=== PATIENT | female | born 1980 | race Caucasian/White ===

== ENCOUNTER → 2018-02-07 | Outpatient (CLI) | payer OTHER ==
[~2018-02-07] MED LIST: DOCU-416 PO; ENOX80DI8 SQ; INSU100C14 SQ
== END ==
LOC: LAB 11:37
PROVIDERS: ATTEND Pediatrics
DX: O92.79 Other disorders of lactation (principal); B37.89 Other sites of candidiasis
CPT/HCPCS: 87071

== ENCOUNTER → 2018-09-09 | Outpatient (CLI) | payer OTHER ==
--- NOTE | 2018-09-09 16:33 | RADIOLOGY IMAGING REPORT ---
FACILITY: [facility] - [place], [place] PATIENT NAME: Salena Cardona : 1980 MR: [id number] V: [id number] EXAM DATE: ORDERING PHYSICIAN: MICHAEL MOJICA TECHNOLOGIST: Location: [facility] - [place], [place] Patient: Salena Cardona : 1980 Visit/Account:[id number] Date of Sevice: 09/09/2018 Study: CT scan of the brain without intravenous contrast. Indication: Headache, visual disturbance, left eye pain, ptosis Comparison study:None Technique: Multiple axial images were obtained through the brain without the use of intravenous contr ast. One of the following dose optimization techniques was utilized in the performance of this exam: Autom ated exposure control; adjustment of the mA and/or kV according to the patient's size; or use of an i terative reconstruction technique. Specific details can be referenced in the facility's radiology C T exam operational policy. The examination demonstrates no evidence of acute intracranial hemorrhage. There is no evidence of ex tra-axial collection or hydrocephalus. There is no abnormal density identified within the brain parenchyma. There is no evidence of disruption of the peripheral duncan-white junction. The bony structures are unremarkable. Incidental note is made of opacification of the left aspect of the frontal sinus. IMPRESSION:Unremarkable CT scan of the brain without contrast. Report Dictated By: Mushtaq Tobin at 09/09/2018 4:27 PM Report E-Signed By: Mushtaq Tobin at 09/09/2018 4:29 PM [id number]
== END ==
LOC: CT 00:12
PROVIDERS: ATTEND Family Medicine
DX: R51 Headache (principal); H53.9 Unspecified visual disturbance; H57.12 Ocular pain, left eye; H02.402 Unspecified ptosis of left eyelid
CPT/HCPCS: 70450